=== PATIENT | male | born 1970 | race Caucasian/White ===

== ENCOUNTER 2019-01-23 12:17 | Emergency (ER) | payer BC ==
[2019-01-23] MEDS ORDERED: fentaNYL 100 MCG/2 ML SDV ONE (12:38)
[2019-01-23] MEDS ORDERED: fentaNYL 100 MCG/2 ML SDV IVPUSH ONE ×2 (12:41→12:42)
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
[2019-01-23] MEDS ORDERED: Sodium Chloride 0.9% 1,000 ML IV SCH (12:45)
[2019-01-23] MEDS ORDERED: Iohexol 647 MG/ML 100 ML Bottle IVPUSH ONE (13:27)
[2019-01-23] MEDS ORDERED: Diphtheria,Pertussis(Acell),Tetanus Vaccine 0.5 ML Syringe IM ONE (14:02)
[2019-01-23] MEDS ORDERED: Acetaminophen/HYDROcodone 325-5 MG Tab PO ONE (14:25)
--- NOTE | 2019-01-26 08:30 | CT ---
CT cervical spine Technique: Multiple axial sections were obtained from above C1 inferiorly to the bottom of T1. Reconstructed sagittal and coronal images were reviewed. Comparison: No prior cervical spine imaging. Findings: Moderate disc space narrowing is noted at C5-C6 with anterior and posterior osteophytes. Anterior osteophytes are seen with asymmetric large osteophyte noted laterally on the left side at C6-C7. Mild scoliosis is seen. Vertebral body heights are maintained. Diffuse posterior disc bulge is seen at C5-C6 causing mild central canal stenosis. No neural foraminal stenosis is seen. No fracture or abnormal subluxation is seen. Impression: 1. Degenerative change. Diffuse posterior disc bulge at C5-C6 causing mild central canal stenosis. 2. Nothing acute is appreciated. Diagnostic code #3 I agree with preliminary report from [facility], finalized on 01/23/19, 2:32 PM Central Time
--- NOTE | 2019-01-26 08:51 | CT ---
CT chest Technique: Multiple axial sections were obtained through the chest from above the lung apices inferiorly through the lung bases. Intravenous contrast was utilized. Comparison: No prior chest imaging is available. Findings: Slightly comminuted fracture is noted within the mid left clavicle with mild displacement. Mediastinum and hilar regions show no adenopathy or mass. No axillary adenopathy is seen. No pericardial fluid is seen. Lungs are clear with no pulmonary contusion. No pleural effusions or pneumothorax is seen. No discrete rib fracture is appreciated. Vertebral body heights are maintained. Lateral sternum appears to be intact. Impression: 1. Left clavicle fracture as noted above. 2. No other acute abnormality is appreciated on CT study of the chest. Diagnostic code #3 I agree with preliminary report from [facility], finalized on 01/23/19, 2:[address] abdomen and pelvis Technique: Multiple axial sections were obtained from above the dome of the diaphragm inferiorly through the pubic symphysis. Intravenous contrast was utilized. No oral contrast has been given. Comparison: No prior abdominal imaging. Findings: Liver shows no focal parenchymal abnormality. Spleen appears within normal limits. Adrenal glands show no nodule. Pancreas is normal. Kidneys show symmetric contrast enhancement without hydronephrosis or mass. Gallbladder contains no calcified gallstones. Aorta shows no aneurysm. No retroperitoneal adenopathy or mesenteric abnormalities are seen. Appendix is seen which is normal in size. No pelvic mass or adenopathy is seen. Delayed images were also obtained through the abdomen and pelvis which shows contrast excretion into both ureters and bladder. No contrast extravasation is seen. No bowel wall thickening or bowel dilatation is noted. No free fluid or inflammatory change is seen. Bone window settings were reviewed which show severe disc space narrowing at L5-S1 with vacuum phenomena. No compression deformities are seen within the lumbar spine. No discrete pelvic fracture or hip fracture is appreciated. Impression: 1. Incidental findings. Nothing acute is appreciated on CT study of the abdomen and pelvis. Diagnostic code #2 I agree with preliminary report from [facility], finalized on 01/23/19, 2:32 PM Central Time
--- NOTE | 2019-01-26 09:03 | CT ---
Head CT Technique: Multiple axial sections through the brain were obtained. Intravenous contrast was not utilized. Comparison: No prior intracranial imaging. Findings: Ventricles along with basal cisterns and sulci over the convexities are within normal limits for the patient's age. No abnormal parenchymal densities are seen. No evidence of intracranial hemorrhage. No midline shift or mass effect is seen. Bone window settings were reviewed which show the visualized sinuses do appear clear. No acute calvarial abnormality is seen. Impression: 1. Nothing acute is appreciated on noncontrast head CT study. Diagnostic code #1 I agree with preliminary report from [facility], finalized on 01/23/19, 2:30 PM Central Time
--- NOTE | 2019-01-26 09:27 | CR ---
Left shoulder: Four views of the left shoulder were obtained. Mid left clavicle fracture is seen with displacement by over one shaft width with foreshortening. No additional fracture or other bony abnormality is seen. Impression: 1. Displaced left clavicle fracture. Diagnostic code #3
== END 2019-01-23 15:15 | disposition home or self-care (01) ==
LOC: JD.ED 12:17
DX: S42.002A Fracture of unspecified part of left clavicle, initial encounter for closed fracture (principal); V86.59XA Driver of other special all-terrain or other off-road motor vehicle injured in nontraffic accident, initial encounter; Z23 Encounter for immunization
CPT/HCPCS: 36415; 70450; 71260; 72125; 73030; 74177; 80053; 85007; 85027; 90471; 90700; 96361; 96374; 96376; 99285; A9270; J3010; J7040; Q9967; 99284